=== PATIENT | female | born 1950 | race Caucasian/White ===

== ENCOUNTER 2017-09-20 09:23 | Day surgery (SDC) | payer BC ==
[2017-09-20 10:30] VITALS: BMI 28.8
[2017-09-20] MEDS ORDERED: LIDOCAINE HCL/PF 2% SDV 5ML VIAL ONE (10:37)
[2017-09-20] MEDS ORDERED: PROPOFOL 20 ML ONE ×2 (10:37)
[2017-09-20 15:38] VITALS: BP 130/70; PULSE 70; TEMP 97.9
--- NOTE | 2017-09-21 15:26 | PATH ---
Surgical Pathology Report Patient Name: NEREYDA FELIX [facility]. Rec. #: [id number] /Age/Gender: 1950 (Age: 67) / F Account: [id number] Location: U-ENDOSCOPY Taken: 09/20/2017 Received: 09/20/2017 Reported: 09/21/2017 Physicians: Ameya Nguyen D.O. Specimen(s) Received A: BX 2ND PORTION OF DUODENUM B: BX BODY AND ANGULARIS C: BX GE JUNCTION Clinical History Epigastric, abdominal pain Postoperative diagnosis: Abdominal pain, rule out Angela's Final Diagnosis A. DUODENUM, SECOND PORTION, BIOPSY: DUODENAL MUCOSA WITH MILD CHRONIC DUODENITIS. NO EVIDENCE OF CELIAC DISEASE. B. BODY AND ANGULARIS, BIOPSY: GASTRIC MUCOSA WITH CHRONIC GASTRITIS. IMMUNOSTAIN IS NEGATIVE FOR H. PYLORI ORGANISMS. C. GE JUNCTION, BIOPSY: GASTROESOPHAGEAL JUNCTIONAL MUCOSA WITH MILD CHRONIC INFLAMMATION, IN A BACKGROUND OF FEATURES SUGGESTIVE OF REFLUX ESOPHAGITIS. NEGATIVE FOR INTESTINAL METAPLASIA. Electronically Signed Yadiel Penn M.D. Gross Description A. Received in formalin, labeled "biopsy second portion of duodenum" are 2 mata, irregular portions of soft tissue measuring 0.3 and 0.4 cm. in greatest dimension. The specimens are submitted in toto in one cassette. B. Received in formalin, labeled "biopsy body/angularis" are 3 mata, irregular portions of soft tissue ranging from 0.3-0.5 cm. in greatest dimension. The specimens are submitted in toto in one cassette. C. Received in formalin, labeled "biopsy GE junction" is a mata, irregular portion of soft tissue measuring 0.4 cm. in greatest dimension. The specimen is submitted in toto in one cassette. DL/09/20/2017 saudi/09/20/2017
== END 2017-09-20 12:35 | disposition home or self-care (01) ==
LOC: JASU-ENDO 09:23
PROVIDERS: ATTEND Internal Medicine Gastroenterology
PROC: 0DB68ZX Excision of Stomach, Via Natural or Artificial Opening Endoscopic, Diagnostic (ICD-10-PCS; 2017-09-20)
PROC: 0DB48ZX Excision of Esophagogastric Junction, Via Natural or Artificial Opening Endoscopic, Diagnostic (ICD-10-PCS; 2017-09-20)
PROC: 0DB98ZX Excision of Duodenum, Via Natural or Artificial Opening Endoscopic, Diagnostic (ICD-10-PCS; principal; 2017-09-20 10:15)
DX: K29.50 Unspecified chronic gastritis without bleeding (principal); K29.80 Duodenitis without bleeding
CPT/HCPCS: 88305-TC; 88342-TC

== ENCOUNTER 2017-10-18 10:16 | Day surgery (SDC) | payer BC ==
[2017-10-17 14:13] VITALS: BMI 27.4
[2017-10-18] MEDS ORDERED: PROPOFOL 20 ML ONE ×2 (11:03)
[2017-10-18] MEDS ORDERED: LIDOCAINE HCL/PF 1% SDV 5ML VIAL ONE (11:03)
[2017-10-18 11:46] VITALS: TEMP 97.7
[2017-10-18 12:54] VITALS: BP 121/61; PULSE 66
== END 2017-10-18 13:06 | disposition home or self-care (01) ==
LOC: JASU-ENDO 10:16
PROVIDERS: ATTEND Internal Medicine Gastroenterology
PROC: 0DJD8ZZ Inspection of Lower Intestinal Tract, Via Natural or Artificial Opening Endoscopic (ICD-10-PCS; principal; 2017-10-18 11:30)
DX: Z12.11 Encounter for screening for malignant neoplasm of colon (principal); K64.8 Other hemorrhoids

== ENCOUNTER 2021-06-07 15:18 | Emergency (ER) | payer OTHER, BC ==
[2021-06-07 15:30] VITALS: TEMP 97.3; BMI 25.7
[2021-06-07] MEDS ORDERED: LIDOCAINE 5% TOPICAL PATCH TP ONE (16:38)
[2021-06-07] MEDS ORDERED: KETOROLAC TROMETHAMINE 15 MG/ML VIAL IM ONE (16:38)
[2021-06-07] MEDS ORDERED: METHOCARBAMOL 500 MG TABLET PO ONE (16:39)
[2021-06-07] MEDS ORDERED: KETOROLAC TROMETHAMINE 15 MG/ML VIAL ONE (18:24)
[2021-06-07] MEDS ORDERED: METHOCARBAMOL 500 MG TABLET ONE (18:24)
[2021-06-07] MEDS ORDERED: LIDOCAINE 5% TOPICAL PATCH ONE (18:25)
[2021-06-07 21:21] VITALS: BP 138/68; PULSE 75
[2021-06-07] MEDS ORDERED: LIDOCAINE PATCH REMOVAL MC SCH (22:00)
== END 2021-06-07 21:22 | disposition home or self-care (01) ==
LOC: JERFT 15:18
PROC: 3E023GC Introduction of Other Therapeutic Substance into Muscle, Percutaneous Approach (ICD-10-PCS; principal; 2021-06-07)
DX: M71.21 Synovial cyst of popliteal space [Baker], right knee (principal)
CPT/HCPCS: 73562-TC-RT-FY; 93971-TC; 96372; 99284-25

== ENCOUNTER 2022-07-06 18:46 | Inpatient (IN) | payer OTHER ==
[2022-07-06] MEDS ORDERED: SODIUM CHLORIDE 0.9% 500 ML INFUS.BAG IV ONE (21:14)
[2022-07-06] MEDS ORDERED: ONDANSETRON 4 MG/2 ML VIAL IVPUSH ONE (21:14)
[2022-07-06] MEDS ORDERED: ONDANSETRON 4 MG/2 ML VIAL ONE (22:08)
[2022-07-06 22:18] LABS: BASO % 0.3 % (0-2.0); EOS % 0.6 % (0-4.5); HEMATOCRIT 43.1 % (32.4-45.2); MCH 28.9 pg (25.7-33.7); MCHC 32.6 g/dl (32.0-36.0); MEAN CELL VOLUME 88.8 fl (80-96); MEAN PLT VOLUME 9.2 fl (7.5-11.1); MONO % 2.4 % (3.8-10.2); NEUT % 91.7 % (42.8-82.8); PLATELET COUNT 194 10^3/uL (134-434); RBC 4.85 M/mm3 (3.60-5.2); RDW 14.7 % (11.6-15.6); WHITE BLOOD COUNT 11.9 K/mm3 (4.0-10.0)
[2022-07-06 22:19] LABS: PH,URINE 5.5 (5.0-8.0); URINE APPEARANCE CLEAR; URINE BILIRUBIN NEGATIVE (NEGATIVE); URINE COLOR YELLOW; URINE GLUCOSE (UA) NEGATIVE (NEGATIVE); URINE KETONE 1+ (NEGATIVE); URINE LEUK ESTERASE NEGATIVE (NEGATIVE); URINE NITRITE NEGATIVE (NEGATIVE); URINE PROTEIN NEGATIVE (NEGATIVE)
[2022-07-06 22:26] LABS: INR 1.03 (0.83-1.09); PROTHROMBIN TIME (PATIENT) 11.9 SEC (9.7-13.0)
[2022-07-06 22:28] LABS: ACTIVATED PTT 31.9 SECONDS (25.2-36.5)
[2022-07-06 22:42] LABS: ALBUMIN 3.5 g/dl (3.4-5.0); BLOOD UREA NITROGEN 18.5 mg/dL (7-18); CALCIUM 8.9 mg/dL (8.5-10.1); MAGNESIUM 1.8 mg/dL (1.8-2.4)
[2022-07-06 22:45] LABS: CREATININE 0.8 mg/dL (0.55-1.3)
[2022-07-06 22:47] LABS: ANISOCYTOSIS 3+; BILIRUBIN,TOTAL 0.5 mg/dL (0.2-1); MACROCYTOSIS 0; OVALOCYTE 1+
[2022-07-07] MEDS ORDERED: morphine CARPU-JECT 2 MG/1 ML DISP.SYRIN IVPUSH ONE (01:48)
[2022-07-07] MEDS ORDERED: SODIUM CHLORIDE 0.9% 500 ML INFUS.BAG IV ONE (01:48)
[2022-07-07] MEDS ORDERED: ONDANSETRON 4 MG/2 ML VIAL IVPUSH ONE (03:53)
[2022-07-07] MEDS ORDERED: ACETAMINOPHEN 325 MG TABLET (FP) PO PRN (04:19)
[2022-07-07] MEDS ORDERED: PROMETHAZINE HCL 25 MG/1 ML VIAL IVPB PRN (05:12)
[2022-07-07] MEDS: SODIUM CHLORIDE 1,000 ML IV SCH (06:25)
[2022-07-07 06:43] LABS: BASO % 0.2 % (0-2.0); EOS % 0.5 % (0-4.5); HEMATOCRIT 38.5 % (32.4-45.2); HEMOGLOBIN 12.8 GM/dL (10.7-15.3); LYMPH % 14.3 % (8-40); MCHC 33.2 g/dl (32.0-36.0); MEAN CELL VOLUME 90.4 fl (80-96); MONO % 2.6 % (3.8-10.2); NEUT % 82.4 % (42.8-82.8); PLATELET COUNT 175 10^3/uL (134-434); RBC 4.26 M/mm3 (3.60-5.2); RDW 14.8 % (11.6-15.6); WHITE BLOOD COUNT 9.1 K/mm3 (4.0-10.0)
[2022-07-07 07:12] LABS: CALCIUM 8.2 mg/dL (8.5-10.1)
[2022-07-07 07:13] LABS: MAGNESIUM 1.8 mg/dL (1.8-2.4)
[2022-07-07 07:16] LABS: CREATININE 0.7 mg/dL (0.55-1.3); PHOSPHOROUS 3.2 mg/dL (2.5-4.9)
[2022-07-07 07:17] LABS: BILIRUBIN,TOTAL 0.5 mg/dL (0.2-1); TOT PROT 5.8 g/dl (6.4-8.2)
[2022-07-07] MEDS ORDERED: PANTOPRAZOLE 40 MG TABLET PO ONE (10:19)
[2022-07-07] MEDS ORDERED: KETOROLAC TROMETHAMINE 15 MG/ML VIAL ONE ×2 (10:19→19:58)
[2022-07-07] MEDS ORDERED: FAMOTIDINE 20 MG TABLET ONE (10:19)
[2022-07-07] MEDS ORDERED: LEVOTHYROXINE NA 75 MCG TABLET (FP) ONE (10:19)
[2022-07-07] MEDS ORDERED: amLODIPine BESYLATE 5 MG TABLET (FP) ONE (10:19)
[2022-07-07] MEDS ORDERED: ENOXAPARIN NA (PORCINE) 40 MG/0.4 ML DISP.SYRIN SQ ONE (10:19)
[2022-07-07] MEDS: INSULIN SLIDING SCALE (NOVOLOG) 1 VIAL SQ SCH ×3 (10:49→17:28)
[2022-07-07] MEDS: LEVOTHYROXINE NA 75 MCG TABLET (FP) PO SCH (10:49)
[2022-07-07] MEDS: KETOROLAC TROMETHAMINE 15 MG/ML VIAL IM PRN ×2 (10:49→20:06)
[2022-07-07] MEDS: PANTOPRAZOLE 40 MG TABLET PO SCH (10:50)
[2022-07-07] MEDS: amLODIPine BESYLATE 5 MG TABLET (FP) PO SCH (10:50)
[2022-07-07] MEDS: FAMOTIDINE 40 MG TABLET PO SCH (10:50)
[2022-07-07] MEDS: ENOXAPARIN NA (PORCINE) 40 MG/0.4 ML DISP.SYRIN SQ SCH (10:50)
[2022-07-07] MEDS ORDERED: DEXTROSE 5%-0.45% SALINE 1,000 ML IV SCH (13:45)
[2022-07-07] MEDS ORDERED: ATORVASTATIN CA 20 MG TABLET (FP) PO SCH (22:00)
[2022-07-07] MEDS ORDERED: MELATONIN 5 MG TABLETS PO PRN (23:23)
[2022-07-08] MEDS: INSULIN SLIDING SCALE (NOVOLOG) 1 VIAL SQ SCH ×4 (00:49→17:15)
[2022-07-08] MEDS: LEVOTHYROXINE NA 75 MCG TABLET (FP) PO SCH (06:59)
[2022-07-08] MEDS: KETOROLAC TROMETHAMINE 15 MG/ML VIAL IM PRN (07:03)
[2022-07-08 07:53] VITALS: BMI 26.1
[2022-07-08] MEDS: PANTOPRAZOLE 40 MG TABLET PO SCH (09:55)
[2022-07-08] MEDS: ENOXAPARIN NA (PORCINE) 40 MG/0.4 ML DISP.SYRIN SQ SCH (09:55)
[2022-07-08] MEDS: amLODIPine BESYLATE 5 MG TABLET (FP) PO SCH (09:55)
[2022-07-08] MEDS: FAMOTIDINE 40 MG TABLET PO SCH (09:55)
[2022-07-08] MEDS: SODIUM CHLORIDE 1,000 ML IV SCH (09:56)
[2022-07-08 14:41] VITALS: RESP 18
[2022-07-08 15:17] VITALS: BP 130/55; PULSE 75; TEMP 98.1
== END 2022-07-08 18:26 | disposition home or self-care (01) | DRG 390 ==
LOC: JER 18:46 → JERBED 07-07 01:21 → J8W 07-07 23:08
PROVIDERS: ADMIT Internal Medicine; ATTEND Nurse Practitioner Family
DX: K56.609 Unspecified intestinal obstruction, unspecified as to partial versus complete obstruction (principal); I10 Essential (primary) hypertension; E78.5 Hyperlipidemia, unspecified; E11.9 Type 2 diabetes mellitus without complications; E03.9 Hypothyroidism, unspecified; K59.00 Constipation, unspecified; I44.7 Left bundle-branch block, unspecified; N81.4 Uterovaginal prolapse, unspecified; K21.9 Gastro-esophageal reflux disease without esophagitis; N28.1 Cyst of kidney, acquired; F32.A Depression, unspecified; Z86.718 Personal history of other venous thrombosis and embolism
CPT/HCPCS: 0241U-QW; 36415; 74019-TC-FY; 74177-TC; 80053; 81003; 82962; 83605; 83690; 83735; 84100; 84484; 85025; 85610; 85730; 87086; 93005; 93010; 99285-25; Q9967

== ENCOUNTER 2022-08-22 16:09 | Emergency (ER) | payer OTHER, BC ==
[2022-08-22] MEDS ORDERED: ALBUTEROL SO4 2.5/IPRATROPIUM 0.5 INH SOL 3 ML VIAL.NEB. NEB ONE ×4 (16:16→16:48)
[2022-08-22] MEDS ORDERED: predniSONE 20 MG TABLET (UD) PO ONE (16:16)
[2022-08-22] MEDS ORDERED: predniSONE 20 MG TABLET (UD) ONE (16:21)
[2022-08-22 16:25] VITALS: BP 153/88; PULSE 125; RESP 18; TEMP 98.2; BMI 23.9
== END 2022-08-22 17:38 | disposition home or self-care (01) ==
LOC: FER 16:09
PROC: 3E0F7GC Introduction of Other Therapeutic Substance into Respiratory Tract, Via Natural or Artificial Opening (ICD-10-PCS; principal; 2022-08-22)
DX: R05.9 Cough, unspecified (principal); R50.9 Fever, unspecified; J45.901 Unspecified asthma with (acute) exacerbation; Z20.822 Contact with and (suspected) exposure to COVID-19
CPT/HCPCS: 71046-TC-FY; 94640; 99284-25

== ENCOUNTER 2023-02-05 09:17 | Inpatient (IN) | payer OTHER, BC ==
[2023-02-05] MEDS ORDERED: EPINEPHrine/PF 1 MG/1 ML (1:1,000) AMPULE ONE (09:27)
[2023-02-05] MEDS ORDERED: RACEPINEPHRINE IH SOL 2.25% 11.25 MG/0.5 ML VIAL NEB ONE (09:33)
[2023-02-05] MEDS ORDERED: FAMOTIDINE 20 MG/50 ML IVPB 20 MG/50 ML MG IVPB ONE (09:45)
[2023-02-05] MEDS ORDERED: methylPREDNISolone NA SUCC 125 MG/2 ML VIAL IVPUSH ONE (09:52)
[2023-02-05] MEDS ORDERED: RACEPINEPHRINE IH SOL 2.25% 11.25 MG/0.5 ML VIAL IH ONE ×2 (09:53)
[2023-02-05] MEDS ORDERED: EPINEPHrine 1:1,000 0.3 MG/0.3 ML SYR IM ONE ×2 (09:54)
[2023-02-05] MEDS ORDERED: SODIUM CHLORIDE 0.9% 500 ML INFUS.BAG IV ONE (09:55)
[2023-02-05] MEDS ORDERED: EPINEPHrine 1:1,000 1,000 MCG in DEXTROSE 5%-WATER - 249 ML IVPB SCH (10:00)
[2023-02-05 10:13] LABS: BASO % 0.4 % (0-2.0); EOS % 1.5 % (0-4.5); LYMPH % 55.3 % (8-40); MCH 29.4 pg (25.7-33.7); MCHC 32.5 g/dl (32.0-36.0); MEAN CELL VOLUME 90.4 fl (80-96); MEAN PLT VOLUME 10.1 fl (7.5-11.1); MONO % 6.3 % (3.8-10.2); NEUT % 36.5 % (42.8-82.8); PLATELET COUNT 238 10^3/uL (134-434); RBC 4.76 M/mm3 (3.60-5.2); RDW 14.1 % (11.6-15.6); WHITE BLOOD COUNT 9.9 K/mm3 (4.0-10.0)
[2023-02-05 10:18] LABS: POTASSIUM 3.6 mmol/L (3.5-5.1)
[2023-02-05 10:19] LABS: CALCIUM 9.1 mg/dL (8.5-10.1)
[2023-02-05 10:20] LABS: ALBUMIN 3.7 g/dl (3.4-5.0)
[2023-02-05 10:23] LABS: CREATININE 0.9 mg/dL (0.55-1.3)
[2023-02-05 10:24] LABS: TOT PROT 7.2 g/dl (6.4-8.2)
[2023-02-05 10:25] LABS: BILIRUBIN,TOTAL 0.5 mg/dL (0.2-1)
[2023-02-05] MEDS ORDERED: RACEPINEPHRINE IH SOL 2.25% 11.25 MG/0.5 ML VIAL NEB PRN (11:23)
[2023-02-05] MEDS: INSULIN SLIDING SCALE (NOVOLOG) 1 VIAL SQ SCH ×3 (11:50→22:07)
[2023-02-05] MEDS: methylPREDNISolone NA SUCC 40 MG/1 ML VIAL IVPUSH SCH (16:43)
[2023-02-05] MEDS: MUPIROCIN 2% TOPICAL OINTMENT FOR DECOLONIZATION NS SCH (21:40)
[2023-02-05] MEDS: CHLORHEXIDINE GLUCONATE 4% CLEANSER FOR DECOLONIZATION TP SCH (21:40)
[2023-02-05] MEDS: FAMOTIDINE 20 MG/50 ML IVPB 20 MG/50 ML MG IVPB SCH (21:44)
[2023-02-06] MEDS ORDERED: methylPREDNISolone NA SUCC 40 MG/1 ML VIAL IVPUSH SCH (02:00)
[2023-02-06] MEDS: INSULIN SLIDING SCALE (NOVOLOG) 1 VIAL SQ SCH ×4 (06:12→21:25)
[2023-02-06] MEDS: LEVOTHYROXINE NA 75 MCG TABLET (FP) PO SCH (06:12)
[2023-02-06 07:45] LABS: BASO % 0.1 % (0-2.0); HEMATOCRIT 40.2 % (32.4-45.2); HEMOGLOBIN 13.2 GM/dL (10.7-15.3); MCH 29.7 pg (25.7-33.7); MCHC 32.9 g/dl (32.0-36.0); MEAN CELL VOLUME 90.1 fl (80-96); MEAN PLT VOLUME 9.6 fl (7.5-11.1); MONO % 0.9 % (3.8-10.2); PLATELET COUNT 241 10^3/uL (134-434); RBC 4.46 M/mm3 (3.60-5.2); RDW 14.2 % (11.6-15.6); WHITE BLOOD COUNT 18.1 K/mm3 (4.0-10.0)
[2023-02-06 07:56] LABS: POTASSIUM 3.8 mmol/L (3.5-5.1)
[2023-02-06 08:01] LABS: ALBUMIN 3.3 g/dl (3.4-5.0); BLOOD UREA NITROGEN 18.9 mg/dL (7-18); CALCIUM 8.9 mg/dL (8.5-10.1)
[2023-02-06 08:03] LABS: CREATININE 0.8 mg/dL (0.55-1.3)
[2023-02-06 08:04] LABS: MAGNESIUM 2.1 mg/dL (1.8-2.4)
[2023-02-06 08:05] LABS: TOT PROT 6.7 g/dl (6.4-8.2)
[2023-02-06 08:06] LABS: BILIRUBIN,TOTAL 0.4 mg/dL (0.2-1)
[2023-02-06] MEDS: ENOXAPARIN NA (PORCINE) 40 MG/0.4 ML DISP.SYRIN SQ SCH (09:36)
[2023-02-06] MEDS: FAMOTIDINE 20 MG/50 ML IVPB 20 MG/50 ML MG IVPB SCH ×2 (09:36→21:17)
[2023-02-06] MEDS: methylPREDNISolone NA SUCC 40 MG/1 ML VIAL IVPUSH SCH (09:38)
[2023-02-06] MEDS ORDERED: LEVOTHYROXINE SODIUM 100 MCG 5 ML VIAL IVPUSH SCH (10:00)
[2023-02-06] MEDS ORDERED: PANTOPRAZOLE 40 MG TABLET PO SCH (10:00)
[2023-02-06] MEDS: MUPIROCIN 2% TOPICAL OINTMENT FOR DECOLONIZATION NS SCH ×2 (11:30→21:17)
[2023-02-06] MEDS ORDERED: INSULIN (NOVOLOG) ASPART 100 UNITS/ML 10ML VIAL ONE ×2 (18:12→21:23)
[2023-02-06] MEDS: CHLORHEXIDINE GLUCONATE 4% CLEANSER FOR DECOLONIZATION TP SCH (21:17)
[2023-02-07] MEDS: LEVOTHYROXINE NA 75 MCG TABLET (FP) PO SCH (06:28)
[2023-02-07] MEDS: INSULIN SLIDING SCALE (NOVOLOG) 1 VIAL SQ SCH ×2 (06:34→12:12)
[2023-02-07 08:05] LABS: BASO % 0.3 % (0-2.0); HEMATOCRIT 39.5 % (32.4-45.2); LYMPH % 28.8 % (8-40); MCH 29.6 pg (25.7-33.7); MCHC 32.8 g/dl (32.0-36.0); MEAN CELL VOLUME 90.3 fl (80-96); MEAN PLT VOLUME 9.9 fl (7.5-11.1); MONO % 3.1 % (3.8-10.2); NEUT % 67.8 % (42.8-82.8); PLATELET COUNT 222 10^3/uL (134-434); RBC 4.37 M/mm3 (3.60-5.2); RDW 14.3 % (11.6-15.6); WHITE BLOOD COUNT 17.6 K/mm3 (4.0-10.0)
[2023-02-07 08:27] LABS: CREATININE 0.9 mg/dL (0.55-1.3); PHOSPHOROUS 3.4 mg/dL (2.5-4.9)
[2023-02-07 08:28] LABS: ALBUMIN 3.3 g/dl (3.4-5.0); BLOOD UREA NITROGEN 26.2 mg/dL (7-18); CALCIUM 9.2 mg/dL (8.5-10.1)
[2023-02-07 08:29] LABS: BILIRUBIN,TOTAL 0.4 mg/dL (0.2-1); TOT PROT 6.6 g/dl (6.4-8.2)
[2023-02-07 08:30] LABS: MAGNESIUM 2.1 mg/dL (1.8-2.4)
[2023-02-07] MEDS: ENOXAPARIN NA (PORCINE) 40 MG/0.4 ML DISP.SYRIN SQ SCH (09:55)
[2023-02-07] MEDS: MUPIROCIN 2% TOPICAL OINTMENT FOR DECOLONIZATION NS SCH (09:56)
[2023-02-07] MEDS: FAMOTIDINE 20 MG/50 ML IVPB 20 MG/50 ML MG IVPB SCH (09:56)
[2023-02-07] MEDS ORDERED: methylPREDNISolone NA SUCC 40 MG/1 ML VIAL IVPUSH SCH (10:00)
[2023-02-07 10:45] VITALS: TEMP 97.9
[2023-02-07] MEDS ORDERED: amLODIPine BESYLATE 5 MG TABLET (FP) PO SCH (12:00)
[2023-02-07 13:52] VITALS: BMI 25.7
[2023-02-07 14:19] VITALS: BP 119/87; PULSE 72; RESP 22
== END 2023-02-07 15:32 | disposition home or self-care (01) | DRG 915 ==
LOC: JER 09:17 → JERBED 10:07 → JICU 10:44
PROVIDERS: ADMIT Internal Medicine; ATTEND Internal Medicine
DX: T78.3XXA Angioneurotic edema, initial encounter (principal); U07.1 COVID-19; T50.8X5A Adverse effect of diagnostic agents, initial encounter; I10 Essential (primary) hypertension; E78.5 Hyperlipidemia, unspecified; E11.9 Type 2 diabetes mellitus without complications; E03.9 Hypothyroidism, unspecified; F32.A Depression, unspecified; K21.9 Gastro-esophageal reflux disease without esophagitis; Z79.84 Long term (current) use of oral hypoglycemic drugs; Y92.89 Other specified places as the place of occurrence of the external cause
CPT/HCPCS: 36415; 70552-TC; 71045-TC-FY; 80053; 82565; 82962; 83735; 84100; 84443; 84520; 85025; 86140; 87635; 93005; 93010; 99291; J0171

== ENCOUNTER 2024-01-05 10:22 | Emergency (ER) | payer OTHER, BC ==
[2024-01-05 10:31] VITALS: RESP 16; TEMP 97.4; BMI 29.2
[2024-01-05] MEDS ORDERED: ONDANSETRON 4 MG/2 ML VIAL ONE (11:12)
[2024-01-05] MEDS: LACTATED RINGERS SOLUTION 1,000 ML IV STA (11:24)
[2024-01-05] MEDS: ONDANSETRON 4 MG/2 ML VIAL IVPUSH ONE (11:24)
[2024-01-05 11:43] LABS: BASO % 0.6 % (0-2.0); EOS % 1.7 % (0-4.5); HEMATOCRIT 41.8 % (32.4-45.2); HEMOGLOBIN 13.7 GM/dL (10.7-15.3); LYMPH % 54.5 % (8-40); MCH 29.9 pg (25.7-33.7); MCHC 32.9 g/dl (32.0-36.0); MEAN PLT VOLUME 9.6 fl (7.5-11.1); MONO % 6.4 % (3.8-10.2); NEUT % 36.8 % (42.8-82.8); PLATELET COUNT 261 10^3/uL (134-434); RBC 4.59 M/mm3 (3.60-5.2); RDW 13.7 % (11.6-15.6)
[2024-01-05 12:07] LABS: ALBUMIN 3.7 g/dl (3.4-5.0); CALCIUM 9.8 mg/dL (8.5-10.1)
[2024-01-05 12:09] LABS: BLOOD UREA NITROGEN 17.7 mg/dL (7-18)
[2024-01-05 12:13] LABS: BILIRUBIN,TOTAL 0.5 mg/dL (0.2-1); TOT PROT 7.2 g/dl (6.4-8.2)
[2024-01-05] MEDS ORDERED: FAMOTIDINE 20 MG/50 ML IVPB 20 MG/50 ML MG IVPB ONE (12:36)
[2024-01-05] MEDS ORDERED: LIDOCAINE VISCOUS 2% ORAL/TOP 15 ML UNIT-DOSE CUP ONE (12:36)
[2024-01-05] MEDS: LIDOCAINE VISCOUS 2% ORAL/TOP 15 ML UNIT-DOSE CUP MM ONE (12:52)
[2024-01-05] MEDS: FAMOTIDINE 20 MG/50 ML IVPB 20 MG/50 ML MG IVPB ONE (12:52)
[2024-01-05 14:40] LABS: POTASSIUM 4.3 mmol/L (3.5-5.1)
[2024-01-05 14:41] LABS: CALCIUM 9.5 mg/dL (8.5-10.1)
[2024-01-05 14:42] LABS: BLOOD UREA NITROGEN 16.7 mg/dL (7-18)
[2024-01-05 14:46] LABS: CREATININE 0.7 mg/dL (0.55-1.3)
[2024-01-05 16:28] LABS: PH,URINE 7.5 (5.0-8.0); URINE APPEARANCE CLEAR; URINE BILIRUBIN NEGATIVE (NEGATIVE); URINE COLOR YELLOW; URINE GLUCOSE (UA) NEGATIVE (NEGATIVE); URINE KETONE NEGATIVE (NEGATIVE); URINE LEUK ESTERASE NEGATIVE (NEGATIVE); URINE NITRITE NEGATIVE (NEGATIVE); URINE PROTEIN NEGATIVE (NEGATIVE); URINE UROBILINOGEN 0.2 mg/dL (0.2-1.0)
[2024-01-05 16:31] VITALS: BP 136/59; PULSE 71
== END 2024-01-05 16:38 | disposition home or self-care (01) ==
LOC: JER 10:22
PROC: 3E033GC Introduction of Other Therapeutic Substance into Peripheral Vein, Percutaneous Approach (ICD-10-PCS; principal; 2024-01-05)
PROC: 3E033GC Introduction of Other Therapeutic Substance into Peripheral Vein, Percutaneous Approach (ICD-10-PCS; 2024-01-05)
PROC: 3E0337Z Introduction of Electrolytic and Water Balance Substance into Peripheral Vein, Percutaneous Approach (ICD-10-PCS; 2024-01-05)
DX: R11.2 Nausea with vomiting, unspecified (principal); K29.00 Acute gastritis without bleeding; R42 Dizziness and giddiness; R10.13 Epigastric pain
CPT/HCPCS: 36415; 76705-TC; 80048; 80053; 81003; 83605; 83690; 83735; 84484; 85025; 86850; 86900; 86901; 93005; 93010; 99285-25